=== PATIENT | male | born 1985 | race Caucasian/White ===

== ENCOUNTER 2017-08-15 16:13 | Inpatient (IN) | payer BC ==
[~2017-08-15] VITALS: Ht 190.5 cm; Wt 70.9 kg
[2017-08-15 17:01] LABS: INTERNATIONAL NORMALIZED RATIO 1.05 (0.93-1.1); PROTHROMBIN TIME 10.8 Seconds (9.6-11.5)
[2017-08-15 17:05] LABS: ALANINE AMINOTRANSFERASE 188 U/L (12-78); ALBUMIN 3.4 g/dL (3.4-5.0); ANION GAP 10 mmol/L (5-15); CALCIUM 8.7 mg/dL (8.5-10.1); CHLORIDE 94 mmol/L (98-107); CREATININE 1.15 mg/dL (0.7-1.3)
[2017-08-15 17:07] LABS: ALKALINE PHOSPHATASE 265 U/L (45-117); TOTAL PROTEIN 7.1 g/dL (6.4-8.2)
[2017-08-15 17:19] LABS: BILIRUBIN,TOTAL 16.4 mg/dL (0.2-1.0)
[2017-08-15 17:28] LABS: BASOPHILS % (AUTO) 0 % (0-1); EOSINOPHILS # (AUTO) 0.01 x10^3/uL (0-0.4); EOSINOPHILS % (AUTO) 0 % (1-7); LYMPHOCYTES # (AUTO) 1.84 x10^3/uL (1-3.4); LYMPHOCYTES % (AUTO) 32 % (22-44); MD SCAN; MEAN CORPUSCULAR HEMOGLOBIN 33.7 pg (27.5-34.5); MEAN CORPUSCULAR HGB CONC 34.5 g/dL (33.2-36.2); MEAN CORPUSCULAR VOLUME 97.7 fL (81-97); MEAN PLATELET VOLUME 8.8 fL (7.4-10.4); MONOCYTES # (AUTO) 0.39 x10^3/uL (0.2-0.8); MONOCYTES % (AUTO) 7 % (2-9); NEUTROPHILS % (AUTO) 61 % (42-75); PLATELET COUNT 167 x10^3/uL (130-400); RED BLOOD COUNT 4.43 x10^6/uL (4.38-5.82); RED CELL DISTRIBUTION WIDTH 15.7 % (9.4-14.8)
[2017-08-15] MEDS ORDERED: RANI75TA12 PO (17:33)
[2017-08-15] MEDS ORDERED: OMEP20TA62 PO (17:33)
[2017-08-15] MEDS ORDERED: ONDA4TAB10 PO (17:33)
[2017-08-15 17:42] LABS: CULTURE INDICATED? YES; MICROSCOPIC INDICATED
[2017-08-15] MEDS ORDERED: OMNIPAQUE 350 MG/ML, 100ML BOTTLE ONE (21:53)
[2017-08-15] MEDS ORDERED: SODIUM CHLORIDE FLUSH 10ML SYR IVF PRN (23:00)
[2017-08-15 23:58] VITALS: BP 128/89
[2017-08-16] MEDS ORDERED: ENALAPRILAT 1.25 MG/ML, 2ML IVPush PRN
[2017-08-16] MEDS ORDERED: ONDANSETRON ODT 4 MG PO PRN
[2017-08-16 00:02] VITALS: BP 128/89
[2017-08-16] MEDS: SODIUM CHLORIDE 0.9% 1,000 ML IV SCH ×2 (00:27→11:57)
[2017-08-16 05:55] LABS: CHLORIDE 102 mmol/L (98-107)
[2017-08-16 05:59] LABS: ALANINE AMINOTRANSFERASE 129 U/L (12-78); ALBUMIN 2.4 g/dL (3.4-5.0); ALKALINE PHOSPHATASE 214 U/L (45-117); ANION GAP 9 mmol/L (5-15); BILIRUBIN,TOTAL 12.9 mg/dL (0.2-1.0); CALCIUM 7.6 mg/dL (8.5-10.1); CREATININE 0.97 mg/dL (0.7-1.3); TOTAL PROTEIN 5.3 g/dL (6.4-8.2)
[2017-08-16 06:03] LABS: MEAN CORPUSCULAR HEMOGLOBIN 34.1 pg (27.5-34.5); MEAN CORPUSCULAR VOLUME 97.5 fL (81-97); RED BLOOD COUNT 3.53 x10^6/uL (4.38-5.82); RED CELL DISTRIBUTION WIDTH 15.1 % (9.4-14.8)
[2017-08-16 06:35] LABS: MD YES
[2017-08-16 06:36] LABS: MEAN PLATELET VOLUME 8.9 fL (7.4-10.4); PLATELET COUNT 112 x10^3/uL (130-400)
[2017-08-16 06:42] LABS: EOS#(MANUAL) 0.03 x10^3/uL (0.0-0.4); EOS% (MANUAL) 1 % (1-7); LYMPH#(MANUAL) 1.12 x10^3/uL (1-3.4); LYMPHS% (MANUAL) 34 % (22-44); MONOS% (MANUAL) 6 % (2-9); REACTIVE LYMPHS # (MANUAL) 0.03 x10^3/uL (0-0); REACTIVE LYMPHS % (MANUAL) 1 % (0-0); SEG#(MANUAL) 1.91 x10^3/uL (1.8-6.8); SEGS% (MANUAL) 58 % (42-75)
[2017-08-16 06:44] LABS: <PLATELET ESTIMATE> DECREASED; <PLT MORPHOLOGY> NORMAL PLT MORPH; ANISOCYTOSIS 1+
[2017-08-16 07:08] VITALS: BP 116/70
[2017-08-16 08:02] VITALS: BP 166/92
[2017-08-16] MEDS: OMEPRAZOLE 20 MG CAPSULE.DR PO SCH (09:02)
[2017-08-16] MEDS ORDERED: POTASSIUM CHLORIDE 40 MEQ in SODIUM CHLORIDE 0.9% 500 ML IV ONE (14:00)
[2017-08-16] MEDS ORDERED: LORazepam 1MG TABLET PO PRN ×4 (14:30)
[2017-08-16] MEDS ORDERED: LORazepam 0.5MG TABLET PO PRN (14:30)
[2017-08-16] MEDS ORDERED: LORazepam 2 MG/ML, 1ML IV PRN ×5 (14:30)
[2017-08-16 14:33] VITALS: BP 127/76
[2017-08-16 15:09] LABS: ANA SCREEN NEGATIVE (Negative)
[2017-08-16 21:25] VITALS: BP 126/77
[2017-08-17] MEDS: SODIUM CHLORIDE 0.9% 1,000 ML IV SCH ×2 (00:43→08:52)
[2017-08-17 02:18] VITALS: BP 122/75
[2017-08-17 05:23] LABS: ALBUMIN 2.2 g/dL (3.4-5.0); ANION GAP 7 mmol/L (5-15); CALCIUM 7.5 mg/dL (8.5-10.1); CHLORIDE 108 mmol/L (98-107)
[2017-08-17 05:32] LABS: HEMOGLOBIN A1C 5.1 % (4.2-6.3)
[2017-08-17 05:41] LABS: ALANINE AMINOTRANSFERASE 102 U/L (12-78); ALKALINE PHOSPHATASE 222 U/L (45-117); BILIRUBIN,TOTAL 8.2 mg/dL (0.2-1.0); CREATININE 0.78 mg/dL (0.7-1.3); TOTAL IRON BINDING CAPACITY 119 mcg/dL (250-450); TOTAL PROTEIN 5.2 g/dL (6.4-8.2); TRANSFERRIN 107 mg/dL (200-360)
[2017-08-17 05:42] LABS: % IRON SATURATION 77 % (20-55); IRON LEVEL 92 mcg/dL (65-175)
[2017-08-17 07:21] VITALS: BP 114/69
[2017-08-17] MEDS: OMEPRAZOLE 20 MG CAPSULE.DR PO SCH (08:53)
[2017-08-17] MEDS ORDERED: MULTIVITAMIN 1 TABLET PO SCH (09:00)
[2017-08-17 12:32] VITALS: BP 122/75
[2017-08-17] MEDS ORDERED: OMEP20TA62 PO (12:56)
[2017-08-17 13:39] VITALS: BP 120/70
== END 2017-08-17 15:08 | disposition home or self-care (01) | DRG 442 ==
LOC: ED 18:23 → EDIP 22:46 → 4NOR 23:45 → DCLOUNGE 08-17 15:01
PROVIDERS: ADMIT Hospitalist; ATTEND Hospitalist
DX: R17 Unspecified jaundice (principal); E87.1 Hypo-osmolality and hyponatremia; K92.0 Hematemesis; F10.10 Alcohol abuse, uncomplicated; Z80.0 Family history of malignant neoplasm of digestive organs
CPT/HCPCS: 36415; 74177; 76700; 80053; 80074; 81001; 82103; 82248; 82390; 82728; 82784; 83036; 83516; 83540; 83550; 83690; 83735; 84155; 84165; 84466; 85025; 85610; 85730; 86038; 86376; 87086; 99285; J3480; Q9967; J7030; J7040

== ENCOUNTER 2019-02-05 08:03 | Emergency (ER) | payer BC, OTHER ==
[~2019-02-05] VITALS: Ht 190.5 cm; Wt 73.6 kg
[2019-02-05 08:37] VITALS: BP 126/89
== END 2019-02-05 13:32 | disposition home or self-care (01) ==
LOC: ED 09:38
DX: K29.00 Acute gastritis without bleeding (principal)
CPT/HCPCS: 36415; 74021; 74177; 80053; 83690; 85025; 96374; 96375; 96376; 99284; J2270; J2405; J3490; Q9967

== ENCOUNTER 2020-12-09 14:51 | Emergency (ER) | payer MEDICAID, OTHER ==
[~2020-12-09] VITALS: Ht 190.5 cm; Wt 66.0 kg
[~2020-12-09 14:51] MED LIST: OMEP20TA62 PO; ONDA4TAB10 PO; RANI-244 PO
[2020-12-09] MEDS ORDERED: LORazepam 2 MG/ML, 1ML ONE (15:25)
[2020-12-09] MEDS ORDERED: ONDANSETRON 2MG/ML, 2ML IVPush ONE (15:30)
[2020-12-09] MEDS ORDERED: FAMOTIDINE 20 MG/2 ML IVPush ONE (15:30)
[2020-12-09] MEDS ORDERED: LORazepam 2 MG/ML, 1ML IVPush PRN (15:30)
[2020-12-09] MEDS ORDERED: MAALOX/HYOSCYAMINE/LIDOCAINE 45 ML BTL PO ONE (15:30)
[2020-12-09] MEDS ORDERED: SODIUM CHLORIDE FLUSH 10ML SYR IVF ONE (15:30)
[2020-12-09 15:45] LABS: BASOPHILS % (AUTO) 0 % (0-1); EOSINOPHILS % (AUTO) 0 % (1-7); LYMPHOCYTES % (AUTO) 7 % (22-44); MEAN CORPUSCULAR HEMOGLOBIN 31.2 pg (27.5-34.5); MEAN CORPUSCULAR HGB CONC 33.8 g/dL (33.2-36.2); MEAN PLATELET VOLUME 7.1 fL (7.4-10.4); MONOCYTES % (AUTO) 6 % (2-9); NEUTROPHILS % (AUTO) 87 % (42-75); PLATELET COUNT 402 x10^3/uL (130-400); RED BLOOD COUNT 5.03 x10^6/uL (4.38-5.82); RED CELL DISTRIBUTION WIDTH 15.1 % (9.4-14.8)
[2020-12-09] MEDS ORDERED: ONDANSETRON 2MG/ML, 2ML ONE (15:51)
[2020-12-09] MEDS ORDERED: FAMOTIDINE 20 MG/2 ML ONE (15:51)
[2020-12-09] MEDS ORDERED: MAALOX/HYOSCYAMINE/LIDOCAINE 45 ML BTL ONE (15:51)
[2020-12-09 15:52] LABS: ALBUMIN 4.8 g/dL (3.4-5.0); ANION GAP 15 mmol/L (5-15); CALCIUM 9.8 mg/dL (8.5-10.1); CHLORIDE 98 mmol/L (98-107)
[2020-12-09 15:58] LABS: ALANINE AMINOTRANSFERASE 29 U/L (12-78); ALKALINE PHOSPHATASE 108 U/L (45-117); CREATININE 0.94 mg/dL (0.7-1.3); TOTAL PROTEIN 8.6 g/dL (6.4-8.2)
[2020-12-09] MEDS ORDERED: CHLORDIAZEPOXIDE 10 MG CAPSULE PO PRN (17:00)
[2020-12-09] MEDS ORDERED: CHLORDIAZEPOXIDE 10 MG CAPSULE ONE (17:23)
[2020-12-09 17:31] VITALS: BP 111/61
--- NOTE | 2020-12-09 17:39 | NUR ---
PT REPORTS FEELING BETTER. BROTHER AT BEDSIDE TO DRIVE PT HOME. PT AMBULATORY WITH STEADY GAIT TO DC DESK, STILL SHAKEY BUT BETTER THEN ARRIVAL. PT VERBALIZES UNDERSTANDING OF DC INSTRUCTIONS AND MEDICATIONS.
== END 2020-12-09 18:02 | disposition home or self-care (01) ==
LOC: ED 17:45
DX: F10.239 Alcohol dependence with withdrawal, unspecified (principal); R55 Syncope and collapse; R56.9 Unspecified convulsions; Z87.891 Personal history of nicotine dependence; Y90.0 Blood alcohol level of less than 20 mg/100 ml
CPT/HCPCS: 36415; 80053; 80320; 85025; 96374; 96375; 99284; J2060; J2405; G0480

== ENCOUNTER 2021-01-17 16:30 | Inpatient (IN) | payer MEDICAID ==
[~2021-01-17] VITALS: Ht 190.5 cm; Wt 68.0 kg
--- NOTE | 2021-01-17 17:11 | NUR ---
ATTEMPTING TO WEAN OFF ETOH. "I'M GETTING DIZZY/SEEING THINGS I CAN'T DO IT BY MYSELF." LAST DRINK YESTERDAY. HR 130 HAS HAD ETOH WITHDRAWAL PRIOR-ON LAMICTAL-LAST DOSE 3 DAYS AGO piv placed from which labs were drawn report to primary rn-Brigida
--- NOTE | 2021-01-17 17:14 | NUR ---
multi-vitamin bag requested from pharmacy
[2021-01-17 17:21] LABS: BASOPHILS % (AUTO) 1 % (0-1); EOSINOPHILS % (AUTO) 0 % (1-7); LYMPHOCYTES % (AUTO) 26 % (22-44); MEAN CORPUSCULAR HEMOGLOBIN 32.7 pg (27.5-34.5); MEAN CORPUSCULAR HGB CONC 34.6 g/dL (33.2-36.2); MEAN PLATELET VOLUME 6.2 fL (7.4-10.4); MONOCYTES % (AUTO) 6 % (2-9); NEUTROPHILS % (AUTO) 67 % (42-75); PLATELET COUNT 393 x10^3/uL (130-400); RED BLOOD COUNT 5.33 x10^6/uL (4.38-5.82)
[2021-01-17] MEDS ORDERED: LORazepam 2 MG/ML, 1ML ONE ×2 (17:28→19:05)
[2021-01-17 17:30] LABS: ALBUMIN 4.4 g/dL (3.4-5.0); ANION GAP 18 mmol/L (5-15); CALCIUM 8.4 mg/dL (8.5-10.1); CHLORIDE 95 mmol/L (98-107)
[2021-01-17] MEDS ORDERED: MAGNESIUM SULFATE 1 GM, THIAMINE 100 MG, FOLIC ACID 1 MG, MVI ADULT 10 ML in SODIUM CHL... IV ONE (17:30)
[2021-01-17] MEDS ORDERED: SODIUM CHLORIDE FLUSH 10ML SYR IVF ONE (17:30)
[2021-01-17] MEDS: LORazepam 2 MG/ML, 1ML IVPush PRN ×2 (17:30→19:08)
--- NOTE | 2021-01-17 17:34 | NUR ---
BEDSIDE REPORT AND CARE FROM [facility] AT THIS TIME. CARE ASSUMED. PT MEDICATED NOTED FOR ALCOHOL DETOX, SLIGHT TREMORS NOTED TO BILATERAL UPPER ARMS/HANDS. PT REQUESTING THIS RN CALL HIS FATHER AND LET HIM KNOW WHERE HE IS AT AND IF HE WILL COME VISIT. FATHER BUFFY [phone]. CALL LIGHT IN REACH. FALL PRECAUTIONS IN PLACE. SIDE RAILS UPX2. A&OX4. CONT PULSE OX, BP, CARDIAC MONITORS IN PLACE. VSS. ST ON MONITOR.
[2021-01-17 17:38] LABS: ALANINE AMINOTRANSFERASE 27 U/L (12-78); ALKALINE PHOSPHATASE 93 U/L (45-117); BILIRUBIN,TOTAL 0.7 mg/dL (0.2-1.0); CREATININE 0.86 mg/dL (0.7-1.3); TOTAL PROTEIN 8.6 g/dL (6.4-8.2)
--- NOTE | 2021-01-17 18:07 | NUR ---
PT FATHER BUFFY CALLED PER PT REQUEST, FATHER BUFFY ON HIS WAY. PT UPDATED REQUESTED
--- NOTE | 2021-01-17 18:20 | NUR ---
DR. ALMODOVAR AT BEDSIDE FOR RECHECK. DISCUSSING POC. PT TO BE ADMITTED, AGREES TO POC AND VERBALIZED UNDERSTANDING. TREMORS IMPROVED, MINIMALLY NOTED IF AT ALL. PT REPORTS "FEELING BETTER, STILL A LITTLE ANXIOUS, CAN I HAVE ANOTHER ATIVAN DOSE?" OKAY PER TO MEDICATE ORDERED. VSS. CALL LIGHT IN REACH. FALL PRECUATIONS IN PLACE. DENIES NEED TO USE RESTROOM. REMAINS A&OX4. WATCHING TV
--- NOTE | 2021-01-17 18:55 | NUR ---
BEDSIDE REPORT AND TRANSFER OF CARE TO [facility] AT THIS TIME.
--- NOTE | 2021-01-17 19:10 | NUR ---
Hospitalist at bedside
--- NOTE | 2021-01-17 19:56 | NUR ---
Report given to SILVIA Wilcox no further questions at this time.
[2021-01-17] MEDS ORDERED: BISACODYL 10 MG SUPP PR PRN (20:00)
[2021-01-17] MEDS ORDERED: CHLORDIAZEPOXIDE 25 MG CAPSULE PO PRN (20:00)
[2021-01-17] MEDS ORDERED: POLYETHYLENE GLYCOL 17 GM PACKET PO PRN (20:00)
[2021-01-17] MEDS ORDERED: ONDANSETRON 2MG/ML, 2ML IVPush PRN (20:00)
--- NOTE | 2021-01-17 20:07 | NUR ---
Pt transported up to 4th floor at this time.
[2021-01-17 20:23] VITALS: BP 143/77
[2021-01-17] MEDS ORDERED: POTASSIUM CHLORIDE 20 MEQ, MAGNESIUM SULFATE 1 GM, THIAMINE 200 MG, FOLIC ACID 1 MG, MV... IV SCH (20:30)
[2021-01-17] MEDS: ACETAMINOPHEN 325 MG TABLET PO PRN (22:25)
[2021-01-18 00:33] VITALS: BP 138/72
[2021-01-18] MEDS: LORazepam 2 MG/ML, 1ML IVPush PRN ×2 (00:55→04:51)
[2021-01-18] MEDS: ACETAMINOPHEN 325 MG TABLET PO PRN ×2 (04:46→13:11)
[2021-01-18 04:53] VITALS: BP 135/81
[2021-01-18 05:48] LABS: BASOPHILS % (AUTO) 1 % (0-1); EOSINOPHILS % (AUTO) 0 % (1-7); LYMPHOCYTES % (AUTO) 24 % (22-44); MEAN CORPUSCULAR HEMOGLOBIN 32.8 pg (27.5-34.5); MEAN PLATELET VOLUME 6.4 fL (7.4-10.4); MONOCYTES % (AUTO) 10 % (2-9); NEUTROPHILS % (AUTO) 65 % (42-75); PLATELET COUNT 270 x10^3/uL (130-400); RED BLOOD COUNT 4.24 x10^6/uL (4.38-5.82); RED CELL DISTRIBUTION WIDTH 15.1 % (9.4-14.8)
[2021-01-18 05:51] LABS: ANION GAP 8 mmol/L (5-15); CALCIUM 8.5 mg/dL (8.5-10.1); CHLORIDE 98 mmol/L (98-107)
[2021-01-18 07:18] VITALS: BP 137/76
[2021-01-18] MEDS ORDERED: DOCUSATE 100 MG CAPSULE PO PRN (08:30)
[2021-01-18] MEDS ORDERED: LORazepam 0.5MG TABLET PO PRN (08:30)
[2021-01-18] MEDS ORDERED: LORazepam 2 MG/ML, 1ML IV PRN ×5 (08:30)
[2021-01-18] MEDS ORDERED: LORazepam 1MG TABLET PO PRN ×4 (08:30)
[2021-01-18] MEDS ORDERED: SENNA/DOCUSATE TABLET PO SCH (09:00)
[2021-01-18] MEDS ORDERED: POTASSIUM CHLORIDE 20 MEQ, MAGNESIUM SULFATE 1 GM, THIAMINE 200 MG, FOLIC ACID 1 MG, MV... IV SCH (12:00)
[2021-01-18 14:41] VITALS: BP 150/80
[2021-01-18 19:34] VITALS: BP 159/85
== END 2021-01-18 21:51 | disposition left against medical advice (07) | DRG 770 ==
LOC: ED 17:03 → EDIP 18:25 → 4EST 20:13
PROVIDERS: ADMIT Student in an Organized Health Care Education/Training Program; ATTEND Internal Medicine
DX: F10.230 Alcohol dependence with withdrawal, uncomplicated (principal); R45.851 Suicidal ideations; E87.2 Acidosis; E87.1 Hypo-osmolality and hyponatremia; E87.5 Hyperkalemia; F10.229 Alcohol dependence with intoxication, unspecified; G40.909 Epilepsy, unspecified, not intractable, without status epilepticus; Z80.0 Family history of malignant neoplasm of digestive organs; Z82.49 Family history of ischemic heart disease and other diseases of the circulatory system; Z83.3 Family history of diabetes mellitus; Z87.891 Personal history of nicotine dependence; Z91.19 Patient's noncompliance with other medical treatment and regimen; K29.70 Gastritis, unspecified, without bleeding; Y90.9 Presence of alcohol in blood, level not specified; Z53.29 Procedure and treatment not carried out because of patient's decision for other reasons
CPT/HCPCS: 36415; 80048; 80053; 80320; 85025; 93005; 96374; 96375; 96376; G0378; J2405; J3411; J3475; J3480; G0480; J2060; J7030